=== PATIENT | female | born 1975 | race African-American/Black ===

== ENCOUNTER 2016-04-20 15:27 | Emergency (ER) | payer SELFPAY ==
[~2016-04-20] VITALS: Ht 170.2 cm; Wt 90.7 kg
[~2016-04-20 15:27] MED LIST: CEPH500C PO; MUPI22OI2 TP; TRAM1TAB4 PO
[2016-04-20 15:35] VITALS: BP 141/88
[2016-04-20] MEDS ORDERED: TETRACAINE 0.5% ONE (15:45)
[2016-04-20] MEDS ORDERED: FLUORESCEIN OPHTH TEST STRIP. ONE (15:45)
[2016-04-20] MEDS ORDERED: POLY10DR3 EACHEYE (16:08)
[2016-04-20] MEDS ORDERED: CLIN-44 PO (16:08)
[2016-04-20] MEDS ORDERED: CYCL10TA2 PO (16:08)
--- NOTE | 2016-04-20 16:08 | PHYS DOC ---
Past Medical History Past Medical History: Other Additional Past Medical Histor: DEGENERATIVE DISK DISEASE Past Surgical History: No Surgical History Alcohol Use: None Drug Use: None Adult General Chief Complaint Chief Complaint: EYE PROBLEMS HPI HPI Patient is a 41 year old female who presents with right eye pain, redness, swelling, and itching. Reports started yesterday and began with feeling like something in it and then woke up today with eyelid swelling and yellow drainage and matting. Denies visual disturbance or contact lens wearing. Also requesting refill of Flexeril for her chronic back pain, DJD. Denies recent injury, parasthesia, incontinence of bowel or bladder. No interventions prior to arrival. Review of Systems Review of Systems Constitutional: Denies fever or chills Eyes: Right eye redness, itching, burning, drainage and eyelid swelling HENT: Denies nasal congestion or sore throat Respiratory: Denies cough or shortness of breath Cardiovascular: No additional information not addressed in HPI GI: Denies abdominal pain, nausea, vomiting, bloody stools or diarrhea : Denies dysuria or hematuria Musculoskeletal: Denies back pain or joint pain Integument: Denies rash or skin lesions or sensory changes Endocrine: Denies polyuria or polydipsia [] Current Medications Current Medications Current Medications Medications (Trade) Dose Ordered Sig/Yuni Start Time Stop Time Status Last Admin Dose Admin Fluorescein Sodium (Ful-Teodora) 1 strip STK-MED ONCE 04/20/16 15:45 04/20/16 15:46 DC Tetracaine HCl (Tetracaine) 1 drop 1X ONCE 04/20/16 16:15 04/20/16 16:15 DC 04/20/16 15:50 1 DROP Allergies Allergies Allergies Coded Allergies Type Severity Reaction Last Updated Verified acetaminophen Allergy Intermediate rash 08/16/13 Yes Physical Exam Physical Exam Constitutional: Well developed, well nourished, no acute distress, non-toxic appearance. HENT: Normocephalic, atraumatic, bilateral external ears normal, oropharynx moist, no oral exudates, nose normal. Eyes: PERRLA, EOMI, Conjunctiva reddened, yellow drainage, matting around lash base. EYelid swelling present, does not extend beyond Neck: Normal range of motion, no tenderness, supple, no stridor. [] Cardiovascular:Heart rate regular rhythm, no murmur [] Lungs & Thorax: Bilateral breath sounds clear to auscultation [] Abdomen: Bowel sounds normal, soft, no tenderness, no masses, no pulsatile masses. [] Skin: Warm, dry, no erythema, no rash. [] Back: No CVA tenderness. bilateral paraspinous tenderness ;umbar Extremities: No tenderness, no cyanosis, no clubbing, ROM intact, no edema. [] Neurologic: Alert and oriented X 3, normal motor function, normal sensory function, no focal deficits noted. [] Psychologic: Affect normal, judgement normal, mood normal. [] Current Patient Data Vital Signs Vital Signs Date Time Temp Pulse Resp B/P Pulse Ox O2 Delivery O2 Flow Rate FiO2 04/20/16 15:35 98.1 79 18 99 Room Air 98.1 EKG EKG [] Radiology/Procedures Radiology/Procedures Tetracaine applied with Fluoroscein. No uptake noted Impressions: 1. Rigth eye conjunctivitis 2. periorbital cellulitis right eye 3. Chronic back pain Course & Med Decision Making Course & Med Decision Making Pertinent Labs and Imaging studies reviewed. (See chart for details) [] Dragon Disclaimer Dragon Disclaimer This electronic medical record was generated, in whole or in part, using a voice recognition dictation system. Departure Departure Impression: Primary Impression: Acute conjunctivitis of right eye Additional Impression: Periorbital cellulitis of right eye Disposition: 01 HOME, SELF-CARE Condition: STABLE Referrals: NO PCP (PCP) Patient Instructions: Bacterial Conjunctivitis, [id number], Chronic Back Pain , Periorbital Cellulitis Additional Instructions: 1. Take all medication as prescribed. 2. Follow up with one of the physicians on the referral sheet next week 3. Return if any problems or concerns, including increased swelling of eye, visual changes Scripts Cyclobenzaprine Hcl 10 Mg [id number] Mg PO TID PRN MUSCLE PAIN #20 TAB Prov:GURVINDER GUTIERREZ APRN 04/20/16 Clindamycin Hcl 150 Mg Capsule2 Cap PO QID #56 CAP Prov:GURVINDER GUTIERREZ APRN 04/20/16 Polymyxin B Sulf/Trimethoprim (Polymyxin B-Tmp Eye Drops)10 Ml Drops1 Drop EACHEYE QID 10 Days Prov:GURVINDER GUTIERREZ APRN 04/20/16 Problem Qualifiers GURVINDER GUTIERREZ APRN Apr 20, 2016 16:08
[2016-04-20] MEDS ORDERED: TETRACAINE 0.5% OD ONE (16:15)
== END 2016-04-20 16:13 | disposition home or self-care (01) ==
LOC: ER 15:27
DX: H10.31 Unspecified acute conjunctivitis, right eye (principal); L03.213 Periorbital cellulitis; G89.29 Other chronic pain; Z88.8 Allergy status to other drugs, medicaments and biological substances
CPT/HCPCS: 99283

== ENCOUNTER 2016-12-17 20:50 | Emergency (ER) | payer OTHER ==
[~2016-12-17] VITALS: Ht 170.2 cm; Wt 90.7 kg
[~2016-12-17 20:50] MED LIST changes: +CLIN150C14 PO; +CYCL10TA2 PO; +POLY10DR3 EACHEYE
[2016-12-17] MEDS ORDERED: BUPIVACAINE 0.5% 50 ML VIAL. INJ ONE (22:00)
[2016-12-17] MEDS ORDERED: DIPHTH,PERTUSS(ACELL),TET TOX 0.5 ML DISP.SYRIN. VAX IM ONE (22:00)
[2016-12-17 22:10] VITALS: BP 144/93
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
[2016-12-17] MEDS ORDERED: HYDR-971 PO (23:32)
[2016-12-17] MEDS ORDERED: CEPH500T PO (23:32)
--- NOTE | 2016-12-18 08:21 | RAD ---
Left foot, 3 views, 12/17/2016: History: Trauma, second toe injury No fracture or dislocation is identified. There is mild spurring at the midfoot level. A small inferior calcaneal spur is noted. IMPRESSION: No acute bony abnormality is detected.
== END 2016-12-18 00:39 | disposition home or self-care (01) ==
LOC: ER 20:50
DX: S91.205A Unspecified open wound of left lesser toe(s) with damage to nail, initial encounter (principal); Z88.6 Allergy status to analgesic agent; W31.89XA Contact with other specified machinery, initial encounter; Y93.89 Activity, other specified; Y92.69 Other specified industrial and construction area as the place of occurrence of the external cause; Y99.8 Other external cause status
CPT/HCPCS: 11760; 73630; 90471; 90715; 99284; J3490